=== PATIENT | female | born 1940 | race Two or more races ===

== ENCOUNTER → 2016-07-30 | Outpatient (CLI) | payer MEDICARE, MEDICAID ==
[2016-07-30 15:25] LABS: BASOPHIL # 0.1 K/uL (0.0-0.2); BASOPHIL % 0.7 %; EOSINOPHIL # 0.4 K/uL (0.0-0.5); EOSINOPHIL % 2.9 %; HEMATOCRIT 39.3 % (33.0-46.0); HEMOGLOBIN 12.5 g/dL (10.0-15.0); IMMATURE GRANULOCYTE # 0.1 K/uL (0.0-0.3); IMMATURE GRANULOCYTE % 0.9 %; LYMPHOCYTE # 3.8 K/uL (0.8-4.0); LYMPHOCYTE % 27.1 %; MCHC 31.8 gm/dL (32.0-36.5); MCV 88.1 fl (83.0-98.0); MONOCYTE # 1.4 K/uL (0.0-1.0); MONOCYTE % 9.9 %; MPV 10.9 fl (9.4-12.4); NEUTROPHIL # (ANC) 8.1 K/uL (1.8-7.8); NEUTROPHIL % 58.5 %; NRBC % 0 /100WBC (0-0.00); PLATELET COUNT 367 K/uL (150-450); RBC 4.46 M/uL (3.50-5.50); RDW-CV 14.9 % (11.9-14.6); WBC 13.9 K/uL (4.0-11.0)
[2016-07-30 15:40] LABS: ALBUMIN 3.2 gm/dL (3.5-5.0); ALK PHOS 92 IU/L (33-138); ALT 20 IU/L (12-78); ANION GAP 11.5 (10.0-19.0); AST 19 IU/L (10-40); BLOOD UREA NITROGEN 15 mg/dL (6-24); CALCIUM 8.8 mg/dL (8.5-10.5); CHLORIDE 108 mMol/L (96-110); CO2 29 mMol/L (22-32); CREATININE 0.7 mg/dL (0.5-1.1); ESTIMATED GFR (MDRD EQUATION) > 60; POTASSIUM 3.5 mMol/L (3.7-5.1); SODIUM 145 mMol/L (135-145); TOTAL BILIRUBIN 0.4 mg/dL (0.0-1.5); TOTAL PROTEIN 6.7 g/dL (6.0-8.4)
== END | disposition disaster alternative care site (69) ==
LOC: LNHI 15:16
PROVIDERS: Internal Medicine Cardiovascular Disease
DX: I25.10 Atherosclerotic heart disease of native coronary artery without angina pectoris (principal); I10 Essential (primary) hypertension; E78.2 Mixed hyperlipidemia